=== PATIENT | male | born 1970 | race Caucasian/White ===

== ENCOUNTER 2020-07-13 17:00 | Outpatient (RCR) | payer MEDICAID, SELFPAY | END 2020-08-17 14:46 | disposition home or self-care (01) | LOC: HO.PTCHIC 17:00 | PROVIDERS: PCP Internal Medicine; Visit Provider Internal Medicine | DX: M54.5 Low back pain (principal) | CPT/HCPCS: 97014; 97110; 97140; 97161 ==

== ENCOUNTER 2020-07-18 16:28 | Outpatient (REF) | payer MEDICAID, SELFPAY | END 2020-07-18 16:29 | disposition home or self-care (01) | LOC: HO.LAB 16:28 | PROVIDERS: PCP Internal Medicine; Visit Provider Internal Medicine | DX: Z20.828 Contact with and (suspected) exposure to other viral communicable diseases (principal) | CPT/HCPCS: C9803; U0003 ==

== ENCOUNTER 2020-11-30 08:45 | Outpatient (REF) | payer OTHER, SELFPAY ==
--- NOTE | 2020-11-30 08:49 | EMG_ITS ---
This is a 50-year-old man with 6-month history of pain, numbness, and tingling in both hands. PHYSICAL EXAMINATION: On examination, he is alert and oriented with normal intellectual functions. Cranial nerves II through XII are normal. Muscle tone and strength are normal in all 4 extremities. No Tinel or Phalen sign. IMPRESSION: Carpal tunnel syndrome. Nerve conduction EMG study: Mild carpal tunnel syndrome bilaterally, slightly worse on the right. Normal EMG of the right C5 through T1 innervated muscles. MD SHERI Mendoza/GELY / [id number]
== END 2020-11-30 08:46 | disposition home or self-care (01) ==
LOC: HO.NEURO 08:45
PROVIDERS: PCP Internal Medicine; Visit Provider Internal Medicine
DX: R20.0 Anesthesia of skin (principal)
CPT/HCPCS: 95885; 95913